=== PATIENT | female | born 1970 | race Asian ===

== ENCOUNTER → 2024-04-29 17:29 | Outpatient (REF) | payer BC, SELFPAY | LOC: WDC 17:29 | PROVIDERS: ATTENDING PHYSICIAN Obstetrics & Gynecology | DX: Z12.31 Encounter for screening mammogram for malignant neoplasm of breast (principal) | CPT/HCPCS: 77063; 77067 ==

== ENCOUNTER → 2024-09-30 15:13 | Outpatient (REF) | payer BC, SELFPAY | LOC: MRI 3T 15:13 | PROVIDERS: ATTENDING PHYSICIAN Surgery | DX: Z15.01 Genetic susceptibility to malignant neoplasm of breast (principal); R92.2 Inconclusive mammogram | CPT/HCPCS: 77049; A9585 ==

== ENCOUNTER → 2025-04-30 17:28 | Outpatient (REF) | payer BC, SELFPAY | LOC: WDC 17:28 | PROVIDERS: ATTENDING PHYSICIAN Obstetrics & Gynecology | DX: Z12.31 Encounter for screening mammogram for malignant neoplasm of breast (principal) | CPT/HCPCS: 77063; 77067 ==